=== PATIENT | female | born 1965 | race Hispanic/Latino ===

== ENCOUNTER → 2019-07-17 | Outpatient (CLI) | payer BC ==
[~2019-07-17] MED LIST: DIATRIZOATE MEGL/DIATRIZOA SOD 30 ML BTL PO ONE; IOPAMIDOL 370 MG/ML 200 ML INFUS..BTL INJ ONE; SODIUM CHLORIDE 0.9% 50ML 50 ML ONE
[2019-07-17 08:58] LABS: BLOOD UREA NITROGEN 13 mg/dL (7-26); BUN/CREATININE RATIO 18 (6-25); CREATININE, SERUM 0.74 mg/dL (0.57-1.11); EST GLOMERULAR FILTRATION RATE > 60 ML/MIN (60-)
--- NOTE | 2019-07-17 10:41 | Diagnostic Imaging Report ---
CT of the abdomen and pelvis, with contrast, 07/17/2019. History: Ventral hernia. Comparison: None available. Technique: Multidetector CT scanning of the abdomen and pelvis was performed from the level of the lung bases to the inferior pubic rami after intravenous and oral administration of contrast. Coronal and sagittal multiplanar reformations were obtained. RADIATION DOSE: Total DLP: 912 mGy*cm Dose modulation, iterative reconstruction, and/or weight based adjustment of the mA/kV was utilized to reduce the radiation dose to as low as reasonably achievable. Discussion: LUNG BASES: No visualized abnormalities. ABDOMEN: The liver, gallbladder, biliary tree, spleen, pancreas, adrenal glands, and kidneys are normal. The hepatic vein, portal vein, and splenic vein are patent. The abdominal aorta is within normal limits for size. A fairly broad-based ventral hernia is present measuring approximately 5 cm in diameter at the base, containing several loops of distal ileum. There is no bowel wall thickening. There is no small bowel dilatation proximal to the hernia. Contrast is visualized within the terminal ileum and colon. The stomach and large bowel are unremarkable. The appendix is visualized and is normal. There is no evidence of adenopathy or free fluid. PELVIS: The bladder, uterus, and adnexa are normal in appearance. There is no evidence of free fluid or adenopathy. BONES AND SOFT TISSUES: Degenerative changes are present throughout the lumbar spine without evidence of lytic or sclerotic lesion. IMPRESSION: Small bowel containing ventral hernia without evidence of bowel obstruction. Otherwise unremarkable exam. Signed by: Dov Garcia on 07/17/2019 10:38 AM
== END ==
LOC: CT 07:50
PROVIDERS: ATTEND Surgery
DX: K43.6 Other and unspecified ventral hernia with obstruction, without gangrene (principal)
CPT/HCPCS: 36415; 74177; 82565; 84520; Q9967